=== PATIENT | female | born 1955 | race Caucasian/White ===

== ENCOUNTER → 2021-01-21 | Outpatient (CLI) | payer OTHER ==
[2021-01-21 17:08] LABS: BUN/CREATININE RATIO 19 (0-10)
[2021-01-22 12:14] LABS: RHEUMATOID ARTHRITIS FACTOR <10.0 IU/mL (0.0-13.9)
[2021-01-22 16:14] LABS: ALPHA-1-GLOBULIN 0.2 g/dL (0.0-0.4); ALPHA-2-GLOBULIN 0.9 g/dL (0.4-1.0); BETA GLOBULIN 1.7 g/dL (0.7-1.3); GAMMA GLOBULIN 1.3 g/dL (0.4-1.8); GLOBULIN, TOTAL 4.1 g/dL (2.2-3.9); M-SPIKE Not Observed g/dL (Not Observed); PROTEIN, TOTAL, SERUM 8.1 g/dL (6.0-8.5)
== END ==
LOC: LAB 13:48
PROVIDERS: Internal Medicine
DX: M25.50 Pain in unspecified joint (principal); D89.89 Other specified disorders involving the immune mechanism, not elsewhere classified; M77.10 Lateral epicondylitis, unspecified elbow; R63.5 Abnormal weight gain; M62.81 Muscle weakness (generalized)
CPT/HCPCS: 80053; 83520; 84155; 84165; 85652; 86140; 86200; 86431

== ENCOUNTER → 2021-06-02 | Outpatient (CLI) | payer OTHER | LOC: HEART CORB 09:15 | DX: R07.2 Precordial pain (principal); R06.02 Shortness of breath; I10 Essential (primary) hypertension; E78.5 Hyperlipidemia, unspecified; E11.9 Type 2 diabetes mellitus without complications | CPT/HCPCS: 78452; A9502; J2785 ==